=== PATIENT | male | born 1970 | race Two or more races ===

== ENCOUNTER 2024-12-15 16:43 | Inpatient (IN) | payer OTHER, SELFPAY ==
[2024-12-15] VITALS (19 sets, daily range): BP systolic 105–125; BP diastolic 61–81; PULSE 62–78; RESP 14–23; TEMP 36.5; O2SAT 94–99; BMI 35.7
--- NOTE | ~2024-12-15 | XR_ITS ---
EXAMINATION: XR chest 2V Exam Date/Time: 12/15/2024 17:14 CDT HISTORY: CP x 1 week Comparison: None. RESULT: Lines, tubes, and devices: None. Lungs and pleura: Clear. Cardiomediastinal silhouette: Stable. Other: No acute upper abdominal finding. Mild multilevel anterior wedge deformities in the lower tho racic spine, likely T10-T12. IMPRESSION: No acute cardiopulmonary process. Mild anterior wedge deformities in the lower thoracic spine, presumably physiologic or old, unless ac companied by acute back pain. Reviewed, dictated and finalized at location K. IMPRESSION: No acute cardiopulmonary process. Mild anterior wedge deformities in the lower thoracic spine, presumably physiol ogic or old, unless accompanied by acute back pain.
--- NOTE | ~2024-12-15 | CT_ITS ---
EXAMINATION: CT brain wo con DATE: 12/15/2024 17:26 INDICATION: R arm numbness . TECHNIQUE: Computed tomography (CT) of the head was performed without intravenous contrast. The mA wa s adjusted according to patient size. Iterative reconstruction technique was employed. The dose-lengt h product was 605.33 mGy-cm. COMPARISON: None. FINDINGS: No acute intracranial hemorrhage or extra-axial fluid collection. No hydrocephalus, mass, or herniation. No acute ischemic infarct. Unremarkable dural venous sinus attenuation. No acute osseous abnormality. Bilateral maxillary and ethmoid mucosal thickening, the remaining aerated spaces are clear. IMPRESSION: No acute intracranial process. Reviewed, dictated and finalized at location K.
--- NOTE | ~2024-12-15 | CT_ITS ---
EXAMINATION: CTA chest abdomen pelvis DATE: 12/15/2024 19:51 INDICATION: right arm neuro deficits and chest pain . TECHNIQUE: Computed tomography (CT) of the chest, abdomen, and pelvis was performed with 100 mL Omnip aque-350 intravenous contrast. Automated exposure control and iterative reconstruction technique were employed. The dose-length product was 1575.36 mGy-cm. COMPARISON: None FINDINGS: CHEST: Thoracic aorta: No significant dilation. No dissection. Minimal atherosclerotic calcification. Bovine arch. Left vertebral artery origin directly off the arch. Lung parenchyma and airways: Scattered sub-6 mm pulmonary nodules. Patent airways. Bronchial wall thi ckening. Thoracic inlet, axillae and chest wall: No thyroid or soft tissue mass. No axillary lymphadenopathy. Mediastinum: No mass or lymphadenopathy. Heart and pericardium: Normal heart size. No pericardial effusion. Coronary artery calcifications: . Pleura: No effusion or mass. Thoracic bones: No acute osseous finding in the chest. ABDOMEN/PELVIS: Liver: Enlarged. Diffuse fatty infiltration. Biliary/Gallbladder: Gallbladder is normal. No bile duct dilation. Pancreas: No mass or duct dilation. Spleen: Normal. Adrenals:No mass. Kidneys: No suspicious mass, obstructing stone, or hydronephrosis. Right midpole scar versus surgical defect. Simple left upper pole cyst. Bilateral subcentimeter hypodensities, too small to characteriz e but most likely represent cysts. GI tract: No small or large bowel dilation. Appendix not confidently visualized. Diverticulosis witho ut diverticulitis. Mesentery/Peritoneum: No ascites, mass, or free air. Retroperitoneum: No mass Pelvis: Pelvic organs are within normal limits Soft Tissues: Moderate left and mild right uncomplicated fat-containing inguinal hernias. Abdominopelvic bones: No acute osseous finding in the abdomen/pelvis. IMPRESSION: No acute process detected in the chest. Multiple sub-6 mm pulmonary nodules, which require no additional evaluation unless the patient is at high risk in which case consider an optional low-dose noncontrast CT of the chest in one year Hepatomegaly with steatosis. Reviewed, dictated and finalized at location K. IMPRESSION: No acute process detected in the chest. Multiple sub-6 mm pulmonary nodules, which require no additional evaluation unl ess the patient is at high risk in which case consider an optional low-dose non contrast CT of the chest in one year Hepatomegaly with steatosis.
--- NOTE | ~2024-12-15 | MR_ITS ---
MR cervical spine wo/w con Ordering provider: Kavon Galaviz MD History: . Right shoulder weakness . Comparison: None. Technique: MRI cervical spine with and without contrast enhancement. 20 mL ProHance was given IV. FINDINGS: CERVICAL SPINAL CORD/CRANIAL CERVICAL JUNCTION: Normal in signal and caliber. No abnormal enhancement . CERVICAL VERTEBRAL BODIES: Normal height and alignment. Degenerative changes of the spine. T1 and T2 hyperintense signal is seen in the posterior aspect of the vertebrae which may indicate sclerotic bimal nges. No abnormal marrow enhancement. DISK SPACES: Well maintained. Narrowing of the disc C3-C4, C4-C5 and C6-C7 C2-C3: No stenosis. C3-C4: Mild spinal canal stenosis secondary to broad based disc bulge. Bilateral narrowing of the fo ramina with root compression. C4-C5: Mild spinal canal stenosis secondary to broad based disc bulge. Bilateral narrowing of the fo ramina with root compression. C5-C6: No stenosis. Slight narrowing of the left intervertebral foramen. C6-C7: Mild spinal canal stenosis secondary to broad based disc bulge. Bilateral narrowing of the fo ramina with root compression more on the right side. C7-T1: No stenosis. VISUALIZED PARASPINOUS SOFT TISSUES: Normal. No abnormal enhancement. IMPRESSION: 1. No evidence of acute osseous abnormality. 2. Hyperintense signal seen in the posterior aspect of the vertebrae on T1 and T2 weighted images wh ich may indicate sclerotic changes. 3. Multilevel degenerative disc disease with variable degrees of spinal canal stenosis, intervertebr al foraminal narrowing and root compression. 4. Nonenhancing lesion seen. Reviewed, dictated and finalized at location A. IMPRESSION: 1. No evidence of acute osseous abnormality. 2. Hyperintense signal seen in the posterior aspect of the vertebrae on T1 and T2 weighted images which may indicate sclerotic changes. 3. Multilevel degenerative disc disease with variable degrees of spinal canal stenosis, intervertebral foraminal narrowing and root compression. 4. Nonenhancing lesion seen.
--- NOTE | ~2024-12-15 | MR_ITS ---
EXAMINATION: MR brain/brain stem wo con DATE: 12/16/2024 12:44 INDICATION: Right upper extremity weakness TECHNIQUE: Magnetic resonance imaging (MRI) of the brain and brainstem was performed without intraven ous contrast. Sequences included sagittal and axial T1-weighted SE, axial diffusion-weighted FS SE, a xial T2*-weighted GRE, axial T2-weighted FLAIR, and axial T2-weighted FSE. Apparent diffusion coeffic ient (ADC) maps were created. COMPARISON: Head CT dated 12/15/2024 FINDINGS: There are no areas of restricted diffusion to suggest acute infarction. No intracranial hemorrhage or abnormal intracranial mass lesion. There are a few small foci of nonspecific increased T2-weighted s ignal intensity in the cerebral white matter, predominantly involving the deep and periventricular wh ite matter which is within normal limits for age.. There are no intraparenchymal signal abnormalities seen on the other pulse sequences. The ventricles are symmetric and normal in size. There are no abn ormal extra-axial fluid collections. Flow voids are seen in the cerebral arteries on the T2-weighted sequences consistent with their expected patency. Mild mucosal thickening the paranasal sinuses. Visu alized orbits and soft tissues are unremarkable. IMPRESSION: 1. Normal for age brain. No acute intracranial process. Reviewed, dictated and finalized at location A.
--- NOTE | 2024-12-15 16:52 | ECG_ITS ---
Test Date: 2024-12-15 17:04:47 Measurements Intervals [place] Rate: 76 P: 56 [place]: 156 QRS: 10 QRSD: 98 T: 31 QT: 386 QTc: 435 Interpretive Statements SINUS RHYTHM INCOMPLETE RIGHT BUNDLE BRANCH BLOCK LOW QRS VOLTAGE IN PRECORDIAL LEADS BORDERLINE ECG No previous ECG available for comparison Electronically Signed On 12-15-2024 19:31:21 CDT by Ronan Dye D.O.
--- NOTE | 2024-12-15 17:09 | ED_ITS ---
HPI - Chest Pain General Chief Complaint: Chest Pain <Julienne Eaton APRN - Last Filed: 12/15/24 19:34> Stated Complaint: Chest pain x 1 week <Julienne Eaton APRN - Last Filed: 12/15/24 19:34> Time Seen by Provider: 12/15/24 17:00 <Julienne Eaton APRN - Last Filed: 12/15/24 19:34> Focused HPI: Patient is a 54-year-old male who presents to the ER with complaints of chest pain, shortness of breath and right arm numbness that started approximately 1 week ago. He reports he has a history of COPD, asthma, and kidney cancer. Patient reports the worst of his pain is in his chest but it has been worsening over the past week. He also reports that he has decreased feeling and strength in his right arm. Patient denies back pain, headache, and recent fevers. GENERAL: Well-appearing, well-nourished, and in no acute distress. HEAD: Normocephalic, atraumatic. CHEST: Wheezing and rales to auscultation. ?No respiratory distress. HEART: Regular rate and rhythm.? NEURO: ?Alert and oriented x3. Pt able to hold his R arm up at a 90 degree angle, but denies any feeling/sensation from his shoulder down to his fingers, unable to make a fist on R hand. Patient screened in triage and initial orders placed.? ?Additional care and disposition to be based upon?diagnostic testing and treatment. <Julienne Eaton APRN - Last Filed: 12/15/24 19:34> History of Present Illness HPI narrative: Agree with the HPI above. Patient states he woke up about 1 week prior with sudden-onset right-sided chest pain and numbness to his right arm going from the shoulder down to his fingertips as well as difficulty using his right arm. No history of strokes. History of right partial nephrectomy for kidney cancer now in remission. Denies any other neurological deficits. Was otherwise in his normal state of health. Denies any trauma or injuries. <Marty Ribeiro MD - Last Filed: 12/15/24 21:53> Related Data Allergies/Adverse Reactions: Allergies Allergy/AdvReac Type Severity Reaction Status Date / Time Penicillins Allergy Severe Difficulty Verified 12/15/24 19:20 Swallowing ibuprofen Allergy Intermediate Hives Verified 12/15/24 19:20 acetaminophen (From Tylenol) Allergy Mild Hives Verified 12/15/24 19:20 <Julienne Eaton APRN - Last Filed: 12/15/24 19:34> Review of Systems 2 Review of Systems: As reviewed above in HPI <Marty Ribeiro MD - Last Filed: 12/15/24 21:53> [facility] Social History Social History: Social History Smoking packs per day: 1 Smoking cigarettes per day: 20.0 Smoking status: Current every day smoker Alcohol intake: current Drinks per week: 1 Substance use: current Substance use type: marijuana Do You Feel Safe in your Home?: No Lack of Transportation: No Lack of Food: Never True Current Housing: I Have Housing Concerned About Future Housing: No Difficulty Paying Gas/Electric Bills: No Difficulty Paying for Meds: No Currently Unemployed: No Education: High School Diploma/GED Difficulty w/ Childcare or Family Care: No Spiritual care concerns: No <Julienne Eaton APRN - Last Filed: 12/15/24 19:34> Exam 2 Narrative: GENERAL: [Well-appearing, well-nourished, and in no acute distress.] HEAD: [Normocephalic, atraumatic.] EYES: [PERRLA and EOMI.] ENT: Nares clear, no rhinorrhea or epistaxis. Mucous membranes moist. NECK: Supple. CHEST: [Clear to auscultation. No respiratory distress.] HEART: [Regular rate and rhythm]. No murmur heard. [Normal peripheral pulses.] ABDOMEN: [Soft, nondistended], [nontender], [No rigidity or guarding] EXTREMITIES: Normal range of motion. [No edema.] SKIN: Warm, dry, no rash. NEURO: Right upper extremity with 2/5 surface plate inspector strength, 3/5 strength against gravity in the forearm and shoulder. Anesthesia to pain and light touch in the right upper extremity stopping at the proximal shoulder. No ataxia in the arms or legs. No lower extremity deficits. No left-sided deficits. No facial asymmetry. No anesthesia or paresthesia of the face. PSYCH: [Normal mood and affect.] <Marty Ribeiro MD - Last Filed: 12/15/24 21:53> Course Vital Signs Vital signs: Vital Signs Temperature 36.5 C 12/15/24 16:58 Pulse Rate 75 12/15/24 16:58 Respiratory Rate 16 12/15/24 16:58 Blood Pressure 113/72 12/15/24 16:58 Pulse Oximetry 96 12/15/24 16:58 Oxygen Delivery Room Air 12/15/24 16:58 Temperature 36.5 C 12/15/24 16:58 Pulse Rate 62 12/15/24 21:16 Respiratory Rate 17 12/15/24 21:16 Blood Pressure 123/61 12/15/24 21:20 Pulse Oximetry 96 12/15/24 21:16 Oxygen Delivery Room Air 12/15/24 19:19 <Julienne Eaton APRN - Last Filed: 12/15/24 19:34> Vital Signs Temperature 36.5 C 12/15/24 16:58 Pulse Rate 75 12/15/24 16:58 Respiratory Rate 16 12/15/24 16:58 Blood Pressure 113/72 12/15/24 16:58 Pulse Oximetry 96 12/15/24 16:58 Oxygen Delivery Room Air 12/15/24 16:58 Temperature 36.5 C 12/15/24 16:58 Pulse Rate 62 12/15/24 21:16 Respiratory Rate 17 12/15/24 21:16 Blood Pressure 123/61 12/15/24 21:20 Pulse Oximetry 96 12/15/24 21:16 Oxygen Delivery Room Air 12/15/24 19:19 <Marty Ribeiro MD - Last Filed: 12/15/24 21:53> MDM - Chest Pain MDM Narrative Medical decision making narrative: 54-year-old male with a past medical history including asthma, COPD, kidney cancer with partial nephrectomy. Patient presents today with 1 week of right-sided chest pain associated with neurological deficits such as numbness and inability uses right upper extremity. No history of strokes. No history of cardiac disease or aortic disease to his knowledge. Symptoms persisted for 1 week without any worsening or improvement. Has not sought medical attention prior to today. Denies any headache. His neurological examination does show some concerning findings including decreased surface plate inspector strength 2 in 5 in the right hand, 3 in 5 strength against gravity in the proximal right upper extremity. No deficits to the left side her bilateral lower extremities. No facial asymmetry. Combined with his right-sided chest pain and hard neurological findings suspicion is raised for potential aortic process such as dissection or aneurysm. Intracranial process such as acute or subacute stroke also higher in the differential. Low suspicion acute coronary syndrome. Broad workup was ordered including CBC, CMP, troponin, EKG, chest x-ray, CT angiography of the chest abdomen pelvis and a CT noncontrast of the head. Symptoms ongoing for approximately 1 week. Workup shows no leukocytosis or anemia. Troponin negative x2. CT angiography shows no dissection. Electrolytes largely unremarkable. Normal glucose, normal renal and hepatic function panel. CT of the head shows no acute findings. Chest x-ray unremarkable. Given patient's neurological findings and unremarkable cardiac and vascular workup here I believe he would benefit from admission and brain MRI. Discussed the case with the hospitalist Dr. Hawley who agreed. MRI was ordered. Patient admitted to a telemetry monitored bed at this time. Neurology consult placed. <Marty Ribeiro MD - Last Filed: 12/15/24 21:53> Medical Records Data Attestation: I reviewed the patient's medical records. <Marty Ribeiro MD - Last Filed: 12/15/24 21:53> Lab Data Attestation: I reviewed the patient's lab results. <Marty Ribeiro MD - Last Filed: 12/15/24 21:53> Result diagrams: 12/15/24 17:08 12/15/24 17:08 <Julienne Eaton APRN - Last Filed: 12/15/24 19:34> Labs: Lab Results 12/15/24 12/15/24 Range/Units 17:08 19:58 WBC 6.1 (4.5-10.0) K/mm3 RBC 5.53 (4.6-6.20) M/mm3 Hgb 17.1 (14.0-18.0) g/dL Hct 50.3 (42.0-52.0) % MCV 91.0 (80-100) fl MCH 30.9 (26-34) pg MCHC 34.0 (32-36) g/dl RDW 11.9 (11.5-14.5) % Plt Count 216 (150-375) k/mm3 MPV 10.6 H (7.4-10.4) fl Immature Gran % (Auto) 0.3 (0-0.5) % Neut % (Auto) 59.1 (45.5-73.1) % Lymph % (Auto) 29.3 (18.3-44.2) % [place] % (Auto) 5.5 (2.6-8.5) % Eos % (Auto) 4.8 H (0-4.4) % Baso % (Auto) 1.0 (0.2-1.2) % Lymph # (Auto) 1.77 (0.9-3.2) K/mm3 [place] # (Auto) 0.3 (0.1-0.6) K/mm3 Eos # (Auto) 0.3 (0-0.3) K/mm3 Baso # (Auto) 0.1 (0.0-0.1) K/mm3 Abs Immat Gran (auto) 0.02 (0.00-0.031) K/mm3 Absolute Neuts (auto) 3.6 (1.3-6.7) K/mm3 Absolute Nucleated RBC 0.000 (0.0-0.012) K/mm3 Nucleated RBC % 0.0 (0.0-0.2) % PT 14.4 (11.1-14.7) Seconds INR 1.1 APTT 32.5 (22.3-36.8) Seconds D-Dimer 0.49 H (<0.48) ug/mL Sodium 142 (137-145) mmol/L Potassium 4.1 (3.4-5.0) mmol/L Chloride 108 H (98-107) mmol/L Carbon Dioxide 20 L (22-30) mmol/L Anion Gap 14 H (4-12) mmol/L BUN 12 (9-20) mg/dL Creatinine 0.84 (0.7-1.3) mg/dL Estim Creat Clear Calc 118 ml/min Estimated GFR > 60 (59 - ) Glucose 96 (65-110) mg/dL Calcium 8.8 (8.4-10.2) mg/dL Total Bilirubin 0.5 (0.2-1.3) mg/dL AST 46 (17-59) U/L ALT 59 H (6-50) U/L Alkaline Phosphatase 92 (38-126) U/L Troponin I < 0.012 < 0.012 (0.000-0.034) ng/mL NT-Pro-B Natriuret Pep 51 (19.9-100) pg/mL Total Protein 8.0 (6.3-8.2) g/dL Albumin 4.4 (3.5-5.1) g/dL Lipase 115 (23-300) U/L <Julienne Eaton, REGISTERED NURSE [facility]IOR[facility] HEALTH - Last Filed: 12/15/24 19:34> Lab Results 12/15/24 12/15/24 Range/Units 17:08 19:58 WBC 6.1 (4.5-10.0) K/mm3 RBC 5.53 (4.6-6.20) M/mm3 Hgb 17.1 (14.0-18.0) g/dL Hct 50.3 (42.0-52.0) % MCV 91.0 (80-100) fl MCH 30.9 (26-34) pg MCHC 34.0 (32-36) g/dl RDW 11.9 (11.5-14.5) % Plt Count 216 (150-375) k/mm3 MPV 10.6 H (7.4-10.4) fl Immature Gran % (Auto) 0.3 (0-0.5) % Neut % (Auto) 59.1 (45.5-73.1) % Lymph % (Auto) 29.3 (18.3-44.2) % [place] % (Auto) 5.5 (2.6-8.5) % Eos % (Auto) 4.8 H (0-4.4) % Baso % (Auto) 1.0 (0.2-1.2) % Lymph # (Auto) 1.77 (0.9-3.2) K/mm3 [place] # (Auto) 0.3 (0.1-0.6) K/mm3 Eos # (Auto) 0.3 (0-0.3) K/mm3 Baso # (Auto) 0.1 (0.0-0.1) K/mm3 Abs Immat Gran (auto) 0.02 (0.00-0.031) K/mm3 Absolute Neuts (auto) 3.6 (1.3-6.7) K/mm3 Absolute Nucleated RBC 0.000 (0.0-0.012) K/mm3 Nucleated RBC % 0.0 (0.0-0.2) % PT 14.4 (11.1-14.7) Seconds INR 1.1 APTT 32.5 (22.3-36.8) Seconds D-Dimer 0.49 H (<0.48) ug/mL Sodium 142 (137-145) mmol/L Potassium 4.1 (3.4-5.0) mmol/L Chloride 108 H (98-107) mmol/L Carbon Dioxide 20 L (22-30) mmol/L Anion Gap 14 H (4-12) mmol/L BUN 12 (9-20) mg/dL Creatinine 0.84 (0.7-1.3) mg/dL Estim Creat Clear Calc 118 ml/min Estimated GFR > 60 (59 - ) Glucose 96 (65-110) mg/dL Calcium 8.8 (8.4-10.2) mg/dL Total Bilirubin 0.5 (0.2-1.3) mg/dL AST 46 (17-59) U/L ALT 59 H (6-50) U/L Alkaline Phosphatase 92 (38-126) U/L Troponin I < 0.012 < 0.012 (0.000-0.034) ng/mL NT-Pro-B Natriuret Pep 51 (19.9-100) pg/mL Total Protein 8.0 (6.3-8.2) g/dL Albumin 4.4 (3.5-5.1) g/dL Lipase 115 (23-300) U/L <Marty Ribeiro MD - Last Filed: 12/15/24 21:53> Imaging Data Attestation: I personally reviewed and interpreted this imaging study as follows: < Marty Ribeiro MD - Last Filed: 12/15/24 21:53> My impression: Impressions Chest X-Ray 12/15/24 17:22 IMPRESSION: No acute cardiopulmonary process. Mild anterior wedge deformities in the lower thoracic spine, presumably physiologic or old, unless accompanied by acute back pain. Head CT 12/15/24 17:29 IMPRESSION: No acute intracranial process. Chest/Abdomen/Pelvis CTA 12/15/24 20:01 IMPRESSION: No acute process detected in the chest. Multiple sub-6 mm pulmonary nodules, which require no additional evaluation unless the patient is at high risk in which case consider an optional low-dose noncontrast CT of the chest in one year Hepatomegaly with steatosis. <Marty Ribeiro MD - Last Filed: 12/15/24 21:53> Critical Care Time Critical Care Time Critical Care Time: Yes <Marty Ribeiro MD - Last Filed: 12/15/24 21:53> Total Critical Care Time: 60 <Marty Ribeiro MD - Last Filed: 12/15/24 21:53> Discharge Plan Discharge Clinical Impression: Right arm weakness, Right arm numbness, Right-sided chest pain <Julienne Eaton APRN - Last Filed: 12/15/24 19:34> Patient Disposition: Still a Patient <Julienne Eaton APRN - Last Filed: 12/15/24 19:34> Condition: Stable <Julienne Eaton APRN - Last Filed: 12/15/24 19:34>
--- NOTE | 2024-12-15 17:13 | PC.NURSE ---
called lab to add on DDimer and BNP
[2024-12-15 17:15] LABS: Basophils Absolute Auto 0.1 K/mm3 (0.0-0.1); Eosinophils Absolute Auto 0.3 K/mm3 (0-0.3); Eosinophils Percent Auto 4.8 % (0-4.4); Hematocrit 50.3 % (42.0-52.0); Hemoglobin 17.1 g/dL (14.0-18.0); Immature Granulocyte Absolute 0.02 K/mm3 (0.00-0.031); Immature Granulocyte Percent A 0.3 % (0-0.5); Lymphocytes Absolute Auto 1.77 K/mm3 (0.9-3.2); Lymphocytes Percent Auto 29.3 % (18.3-44.2); Mean Corpuscular Hemoglobin 30.9 pg (26-34); Mean Platelet Volume 10.6 fl (7.4-10.4); Monocytes Absolute Auto 0.3 K/mm3 (0.1-0.6); Monocytes Percent Auto 5.5 % (2.6-8.5); Neutrophils Absolute Auto 3.6 K/mm3 (1.3-6.7); Neutrophils Percent Auto 59.1 % (45.5-73.1); Platelet Count Result 216 k/mm3 (150-375); Red Blood Count 5.53 M/mm3 (4.6-6.20); Red Cell Distribution Width 11.9 % (11.5-14.5); White Blood Count 6.1 K/mm3 (4.5-10.0)
[2024-12-15 17:25] LABS: Alanine Aminotransferase 59 U/L (6-50); Albumin Level 4.4 g/dL (3.5-5.1); Alkaline Phosphatase 92 U/L (38-126); Anion Gap 14 mmol/L (4-12); Aspartate Amino Transferase 46 U/L (17-59); Bilirubin,Total 0.5 mg/dL (0.2-1.3); Blood Urea Nitrogen 12 mg/dL (9-20); Calcium 8.8 mg/dL (8.4-10.2); Carbon Dioxide 20 mmol/L (22-30); Chloride 108 mmol/L (98-107); Estimated CRCL calculation 118 ml/min; Estimated Glomerular Filt Rate > 60; Glucose 96 mg/dL (65-110); Lipase 115 U/L (23-300); Potassium 4.1 mmol/L (3.4-5.0); Sodium 142 mmol/L (137-145)
[2024-12-15 17:28] LABS: INR 1.1; Prothrombin Time 14.4 Seconds (11.1-14.7)
[2024-12-15 17:29] LABS: Partial Thromboplastin Time 32.5 Seconds (22.3-36.8)
[2024-12-15 17:33] LABS: D Dimer 0.49 ug/mL (<0.48)
[2024-12-15 17:41] LABS: NT Pro B Type Natriuretic Pept 51 pg/mL (19.9-100); Troponin I < 0.012 ng/mL (0.000-0.034)
[2024-12-15] MEDS: HYDROmorphone HCL INJ (*CRX) 2 MG/ML VIAL 0.5 MG IV PUSH ×2 (19:34→23:33)
--- OUTSIDE RECORDS SUMMARY | 2024-12-15 19:34 | XMS_ITS | Patient Health Record ---
Author Organization [facility] Address [address] [place] [address] Care Team Providers Care Maintenance Shop Manager Name Role Phone Annelise Barcenas Primary Care Provider [phone] Reason For Referral No Information Plan Of Treatment No Information Insurance Providers Payer Name Payer Address Payer Phone Subscriber Number Group Number Insured Name Patient Relationship to Insured Coverage Start Date Coverage End Date [facility] Attn Claims Department [address] [facility] [place] [address] [id number] Nilda Foreman Self - patient is the insured 4
--- OUTSIDE RECORDS SUMMARY | 2024-12-15 19:35 | XMS_ITS ---
Author Organization [facility] Address [address] [place] [address] Care Team Providers Care Medical Imaging Director Name Role Phone Annelise Barcenas Primary Care Provider [phone] REASON FOR VISIT New Patient Psych Eval Encounters Encounter Location Date Provider Diagnosis [address] [place] [address] 06/03/2024 Annelise Barcenas Plan Of Treatment No Information Progress Notes * AHSANNildaDOB:[birth year] (54 yo M)Acc No.[id number]:06/03/2024 UNLOCKED PROGRESS NOTE Patient: Nilda SMITH Provider: Josias Barcenas DNP, APRN, PMHNP-BC :1970 A ge:53 Y S ex:Male Date:06/03/2024 [facility] [id number] Subjective: * Chief Complaints: * 1 . New Patient Psych Eval. * Medical History: Objective: * Vitals: Assessment: Plan: * Treatment: * * Electronic signature of Mitzi Fair [phone] on 12/15/2024 at 07:34 PM CDT Sign off status: Pending * Provider: Josias Barcenas DNP, APRN, PMHNP-BC Date: 1 Generated for Printing/Faxing/eTransmitting on: 0 12/15/2024 07:34 PM CDT
--- NOTE | 2024-12-15 19:55 | ECG_ITS ---
Test Date: 2024-12-15 20:03:25 Measurements Intervals [place] Rate: 67 P: 60 [place]: 162 QRS: 26 QRSD: 102 T: 32 QT: 419 QTc: 445 Interpretive Statements SINUS RHYTHM ST ELEVATION IN DIFFUSE LEADS- PROBABLY EARLY REPOLARIZATION BORDERLINE ECG Compared to ECG 12/15/2024 17:04:47 NO SIGNIFICANT CHANGE Electronically Signed On 12-16-2024 06:19:00 CDT by Ronan Dye D.O.
[2024-12-15 20:26] LABS: Troponin I < 0.012 ng/mL (0.000-0.034)
--- NOTE | 2024-12-15 21:35 | ADMGEN ---
This patient, Nilda Foreman, was admitted to 2 Medical Room 255-01. Patient/family oriented to hospital policies and general routines including ID bracelet, bed and alarms, visiting hours, pain management, procedures, bathroom and other care routines, personal items, smoking policy, room service/diet, and visiting hours. Information on how to activate the Rapid Response Team has been discussed. Patient/Family are encouraged to report perceived risks to care and to ask questions if they do not understand what they are told or what they should do.
[2024-12-15] MEDS: CLOPIDOGREL BISULFATE 300 MG TABLET PO (23:33)
[2024-12-15] MEDS: ASPIRIN 325 MG TABLET (23:33)
[2024-12-15] MEDS: ATORVASTATIN 40 MG TABLET PO (23:33)
[2024-12-15] MEDS: ASPIRIN 325 MG TABLET PO (23:33)
[2024-12-16] VITALS (10 sets, daily range): BP systolic 131–149; BP diastolic 70–86; PULSE 54–76; RESP 14–16; TEMP 36.5–37; O2SAT 96–98
[2024-12-16] MEDS: HYDROmorphone HCL INJ (*CRX) 2 MG/ML VIAL 0.5 MG IV PUSH (04:35)
[2024-12-16 04:53] LABS: Basophils Absolute Auto 0.1 K/mm3 (0.0-0.1); Eosinophils Absolute Auto 0.3 K/mm3 (0-0.3); Eosinophils Percent Auto 5.3 % (0-4.4); Hematocrit 47.2 % (42.0-52.0); Hemoglobin 15.6 g/dL (14.0-18.0); Immature Granulocyte Absolute 0.02 K/mm3 (0.00-0.031); Immature Granulocyte Percent A 0.4 % (0-0.5); Lymphocytes Absolute Auto 1.73 K/mm3 (0.9-3.2); Mean Corpuscular HGB Conc 33.1 g/dl (32-36); Mean Corpuscular Volume 93.8 fl (80-100); Mean Platelet Volume 11.3 fl (7.4-10.4); Monocytes Absolute Auto 0.5 K/mm3 (0.1-0.6); Monocytes Percent Auto 10.1 % (2.6-8.5); Neutrophils Absolute Auto 2.6 K/mm3 (1.3-6.7); Neutrophils Percent Auto 50.2 % (45.5-73.1); Platelet Count Result 185 k/mm3 (150-375); Red Blood Count 5.03 M/mm3 (4.6-6.20); Red Cell Distribution Width 12.2 % (11.5-14.5); White Blood Count 5.2 K/mm3 (4.5-10.0)
[2024-12-16 04:59] LABS: Cholesterol 236 mg/dL (0-200); HDL Direct 35 mg/dL; Triglycerides 228 mg/dL (<150)
[2024-12-16 05:05] LABS: Alanine Aminotransferase 58 U/L (6-50); Albumin Level 3.9 g/dL (3.5-5.1); Alkaline Phosphatase 82 U/L (38-126); Anion Gap 9 mmol/L (4-12); Aspartate Amino Transferase 44 U/L (17-59); Bilirubin,Total 0.5 mg/dL (0.2-1.3); Blood Urea Nitrogen 12 mg/dL (9-20); Calcium 8.5 mg/dL (8.4-10.2); Carbon Dioxide 23 mmol/L (22-30); Chloride 104 mmol/L (98-107); Estimated CRCL calculation 126 ml/min; Estimated Glomerular Filt Rate > 60; Glucose 106 mg/dL (65-110); Potassium 3.9 mmol/L (3.4-5.0); Sodium 136 mmol/L (137-145)
[2024-12-16 05:09] LABS: LDL Cholesterol Direct 156 mg/dL
[2024-12-16 05:16] LABS: Hemoglobin A1C 5.3 % (<5.7)
--- NOTE | 2024-12-16 07:38 | P.PNIM_ITS ---
Progress Note: A&P Assessment and Plan (1) Right arm numbness: Code(s): R20.0 - Anesthesia of skin Status: Acute Assessment and Plan: And weakness Neurology consulted Head CT shows no acute process MRI pending Patient started aspirin, Plavix, Lipitor And Lovenox (2) Right-sided chest pain: Code(s): R07.9 - Chest pain, unspecified Status: Acute Assessment and Plan: Reproducible upon palpation Troponins negative EKG sinus rhythm Lidocaine patch (3) Hyperlipidemia: Code(s): E78.5 - Hyperlipidemia, unspecified Status: Acute Assessment and Plan: Started on Lipitor daily (4) Fatty liver: Code(s): K76.0 - Fatty (change of) liver, not elsewhere classified Status: Acute Assessment and Plan: ALT 58 Patient counseled on cutting down or quitting drinking Monitor for withdrawals (5) Pulmonary nodule: Code(s): R91.1 - Solitary pulmonary nodule Status: Acute Assessment and Plan: Multiple sub-6 mm pulmonary nodules, which require no additional evaluation unless the patient is at high risk in which case consider an optional low-dose noncontrast CT of the chest in one year Follow-up with PCP Subjective Date/time seen: 12/16/24 07:38 Interval history: 54-year-old presents the hospital with chest pain, shortness of breath and right arm numbness for about a week. Under bedside exam patient states that numbness and limited mobility of his right arm resolved. Plan for MRI today. Chest pain is reproducible upon palpation. Review of Systems Review of Systems: 12 systems were reviewed and are negativ e except for as per HPI. Exam Narrative: General: well appearing, appears stated age. HEENT: normocephalic, atraumatic. Mucous membranes moist. EOMI, PERRLA, b ilateral sclera anicteric, no conjunctival injection. Neck supple without JVD, lymphadenopathy, or bruit. Respiratory: clear to ascultation bilaterally. No rales/rhonic/wheezes. Cardiovascular: Regular rate and rhythm, normal S1-S2 upon ascultation. No murmurs, rubs, or clicks. PMI is nondisplaced, capillary refill less than 3 second. Abdomen: Soft, round, no pulsatile masses, nondistended and nontender. No rebound, no guarding. No CVA tenderness, no hepatosplenomegaly. Bowel sounds present to all four quadrants. No high pitch or tinkling sounds, resonant to percussion. Extremities: No cyanosis, clubbing, or edema present. Pulses are palpable 2/2. Active ROM to all four extremities. Neuro: Alert and orientated x 4. PERRLA. Cranial nerves 2-12 intact without focal deficit. Skin: Warm, dry, and intact, without rash, erythema, or lesion. Psych: pleasant, cooperative, normal speech, normal affect, no hallucinations, no dysarthia Objective Data Vital Signs Vital Signs: Vital Signs - 24 hr 12/15/24 16:58 12/15/24 18:34 12/15/24 18:45 Temperature 97.7 F Pulse Rate 75 75 72 Respiratory Rate 16 21 H 16 Blood Pressure 113/72 Pulse Oximetry 96 94 94 Oxygen Delivery Room Air 12/15/24 18:46 12/15/24 18:54 12/15/24 18:54 Temperature Pulse Rate 78 71 Respiratory Rate 17 20 Blood Pressure 105/77 105/77 Pulse Oximetry 96 98 99 Oxygen Delivery Room Air 12/15/24 19:04 12/15/24 19:14 12/15/24 19:16 Temperature Pulse Rate 72 70 Respiratory Rate 23 H 16 Blood Pressure 125/81 Pulse Oximetry 96 97 97 Oxygen Delivery Room Air 12/15/24 19:19 12/15/24 19:22 12/15/24 19:55 Temperature Pulse Rate 70 69 Respiratory Rate 17 16 Blood Pressure Pulse Oximetry 96 96 98 Oxygen Delivery Room Air 12/15/24 20:05 12/15/24 20:17 12/15/24 20:30 Temperature Pulse Rate 68 74 66 Respiratory Rate 14 19 14 Blood Pressure Pulse Oximetry 97 96 97 Oxygen Delivery 12/15/24 20:49 12/15/24 21:01 12/15/24 21:16 Temperature Pulse Rate 65 64 62 Respiratory Rate 22 H 18 17 Blood Pressure Pulse Oximetry 97 96 96 Oxygen Delivery 12/15/24 21:20 12/15/24 22:00 12/15/24 22:00 Temperature Pulse Rate 69 69 Respiratory Rate 18 Blood Pressure 123/61 Pulse Oximetry 95 Oxygen Delivery 12/16/24 00:00 12/16/24 04:00 12/16/24 06:00 Temperature 98.6 F Pulse Rate 76 72 61 Respiratory Rate 16 Blood Pressure 131/86 Pulse Oximetry 96 Oxygen Delivery Intake/Output Intake/Output: Intake & Output 12/13/24 12/14/24 12/15/24 12/16/24 23:59 23:59 23:59 23:59 Intake Total 200 Balance 200 Meds/Results Medications: Active Medications Generic Name Dose Route Start Last Admin Trade Name Freq PRN Reason Stop Dose Admin Hydrocodone Bitart/Acetaminophen 1 tab 12/16/24 01:07 Hydrocodone/Acetaminophen (*Crx) 5-325 Mg Tablet PO Q4H PRN Pain Rated 4-6 Aspirin 81 mg 12/16/24 09:00 Aspirin 81 Mg Enteric Tablet PO QAM [facility] Clopidogrel Bisulfate 75 mg 12/16/24 09:00 Clopidogrel Bisulfate 75 Mg Tablet PO QAM [facility] Hydromorphone HCl 0.5 mg 12/16/24 01:08 12/16/24 04:35 Hydromorphone Hcl Inj (*Crx) 2 Mg/Ml Vial IV PUSH 0.5 mg Q2H PRN Administration Pain Rated 7-10 Lidocaine 1 patch 12/16/24 09:00 Lidocaine 5% Patch TRANSDERM DAILY [facility] Radiology Results: ITS Impressions Chest X-Ray 12/15/24 17:22 IMPRESSION: No acute cardiopulmonary process. Mild anterior wedge deformities in the lower thoracic spine, presumably physiologic or old, unless accompanied by acute back pain. Head CT 12/15/24 17:29 IMPRESSION: No acute intracranial process. Chest/Abdomen/Pelvis CTA 12/15/24 20:01 IMPRESSION: No acute process detected in the chest. Multiple sub-6 mm pulmonary nodules, which require no additional evaluation unless the patient is at high risk in which case consider an optional low-dose noncontrast CT of the chest in one year Hepatomegaly with steatosis. Labs Labs: Laboratory Results - last 24 hr 12/15/24 12/15/24 12/16/24 17:08 19:58 04:24 WBC 6.1 5.2 RBC 5.53 5.03 Hgb 17.1 15.6 Hct 50.3 47.2 MCV 91.0 93.8 MCH 30.9 31.0 MCHC 34.0 33.1 RDW 11.9 12.2 Plt Count 216 185 MPV 10.6 H 11.3 H Immature Gran % (Auto) 0.3 0.4 Neut % (Auto) 59.1 50.2 Lymph % (Auto) 29.3 33.0 [place] % (Auto) 5.5 10.1 H Eos % (Auto) 4.8 H 5.3 H Baso % (Auto) 1.0 1.0 Lymph # (Auto) 1.77 1.73 [place] # (Auto) 0.3 0.5 Eos # (Auto) 0.3 0.3 Baso # (Auto) 0.1 0.1 Abs Immat Gran (auto) 0.02 0.02 Absolute Neuts (auto) 3.6 2.6 Absolute Nucleated RBC 0.000 0.000 Nucleated RBC % 0.0 0.0 PT 14.4 INR 1.1 APTT 32.5 D-Dimer 0.49 H Sodium 142 136 L Potassium 4.1 3.9 Chloride 108 H 104 Carbon Dioxide 20 L 23 Anion Gap 14 H 9 BUN 12 12 Creatinine 0.84 0.79 Estim Creat Clear Calc 118 126 Estimated GFR > 60 > 60 Glucose 96 106 Hemoglobin A1c 5.3 Calcium 8.8 8.5 Total Bilirubin 0.5 0.5 AST 46 44 ALT 59 H 58 H Alkaline Phosphatase 92 82 Troponin I < 0.012 < 0.012 NT-Pro-B Natriuret Pep 51 Total Protein 8.0 7.0 Albumin 4.4 3.9 Triglycerides 228 H Cholesterol 236 H LDL Cholesterol Direct 156 HDL Direct 35 Lipase 115 Quality VTE Prophylaxis VTE prophylaxis: mechanical ordered and pharmacologic ordered Hospitalist MIPS Advance Care Plan I have confirmed that the patient's Advanced Care Plan is present, code status is documented, or surrogate decision maker is listed in patient medical record.: Yes Medication Reconciliation I have utilized all available resources to obtain, update and review the patients current medications (includes all prescriptions, OTC, herbals, cannabis, and nutritional supplements).: Yes
[2024-12-16] MEDS: HYDROcodone/acetaminophen (*CRX) 5-325 MG TABLET 1 TAB PO ×2 (08:43→20:50)
[2024-12-16] MEDS: LIDOCAINE 5% PATCH 1 PATCH TRANSDERM (08:44)
[2024-12-16] MEDS: ATORVASTATIN 40 MG TABLET PO (08:44)
[2024-12-16] MEDS: CLOPIDOGREL BISULFATE 75 MG TABLET PO (08:44)
[2024-12-16] MEDS: ASPIRIN 81 MG ENTERIC TABLET PO (08:44)
--- NOTE | 2024-12-16 12:50 | P.CONNEU_ITS ---
Assessment and Plan Assessment and plan (1) Right arm numbness: Code(s): R20.0 - Anesthesia of skin Status: Acute (2) Right arm weakness: Code(s): R29.898 - Other symptoms and signs involving the musculoskeletal system Status: Acute Plan 1. Difficulties in breathing for 1 week duration in addition the history of COPD and bronchial asthma and renal cancer 2. Decreased sensation and strength in the right upper extremity 3. Brain MRI normal considering the weakness in the right upper extremity, MRI of cervical spine was obtained rule out the possibility of any space-occupying lesion in his cervical spine or significant arthritic spurs but the study is not consistent with and at this stage patient can be discharged there is no need for any surgical intervention in the head or the neck. Consult date: 12/17/24 HPI: Nilda Foreman is a 54 year old male Has been admitted to the hospital through the emergency room for the complaints of chest pain with difficulties in breathing and numbness of the right upper extremity of 1 week duration in addition to the ongoing history of 1. COPD 2. Renal carcinoma and 3. Bronchial asthma on initial examination he was noted to be wheezing and havingr ales on auscultation, he is allergic to penicillin and ibuprofen in addition history of currently everyday smoking in addition to 1 drinks per week. On initial eval in the emergency room he was noted to have decreased strength on the right, with normal vital signs, initial CT scan of the head was negative, CTA of the chest was negative for any acute process but multiple sub 6mm pulmonary nodules were documented. Subsequently he has undergone MRI of the brain which is negative Review of Systems 2 Review of Systems: All systems reviewed & are unremarkable except as noted in HPI and below PMFSH Social History Social History Smoking packs per day: 1 Smoking cigarettes per day: 20.0 Smoking status: Current every day smoker Alcohol intake: current Drinks per week: 1 Substance use: current Substance use type: marijuana Do You Feel Safe in your Home?: No Lack of Transportation: No Lack of Food: Never True Current Housing: I Have Housing Concerned About Future Housing: No Difficulty Paying Gas/Electric Bills: No Difficulty Paying for Meds: No Currently Unemployed: No Education: High School Diploma/GED Difficulty w/ Childcare or Family Care: No Spiritual care concerns: No Meds Home Medications and Allergies Home Medications ?Medication ?Instructions ?Recorded ?Confirmed ?Type No Home Medications 12/15/24 12/15/24 History Allergies Allergy/AdvReac Type Severity Reaction Status Date / Time Penicillins Allergy Severe Difficulty Verified 12/15/24 19:20 Swallowing ibuprofen Allergy Intermediate Hives Verified 12/15/24 19:20 acetaminophen (From Tylenol) Allergy Mild Hives Verified 12/15/24 19:20 Vital Signs Vital Signs - 24 hr 12/15/24 16:58 12/15/24 18:34 12/15/24 18:45 Temperature 36.5 C Pulse Rate 75 75 72 Respiratory Rate 16 21 H 16 Blood Pressure 113/72 Pulse Oximetry 96 94 94 Oxygen Delivery Room Air 12/15/24 18:46 12/15/24 18:54 12/15/24 18:54 Temperature Pulse Rate 78 71 Respiratory Rate 17 20 Blood Pressure 105/77 105/77 Pulse Oximetry 96 98 99 Oxygen Delivery Room Air 12/15/24 19:04 12/15/24 19:14 12/15/24 19:16 Temperature Pulse Rate 72 70 Respiratory Rate 23 H 16 Blood Pressure 125/81 Pulse Oximetry 96 97 97 Oxygen Delivery Room Air 12/15/24 19:19 12/15/24 19:22 12/15/24 19:55 Temperature Pulse Rate 70 69 Respiratory Rate 17 16 Blood Pressure Pulse Oximetry 96 96 98 Oxygen Delivery Room Air 12/15/24 20:05 12/15/24 20:17 12/15/24 20:30 Temperature Pulse Rate 68 74 66 Respiratory Rate 14 19 14 Blood Pressure Pulse Oximetry 97 96 97 Oxygen Delivery 12/15/24 20:49 12/15/24 21:01 12/15/24 21:16 Temperature Pulse Rate 65 64 62 Respiratory Rate 22 H 18 17 Blood Pressure Pulse Oximetry 97 96 96 Oxygen Delivery 12/15/24 21:20 12/15/24 22:00 12/15/24 22:00 Temperature Pulse Rate 69 69 Respiratory Rate 18 Blood Pressure 123/61 Pulse Oximetry 95 Oxygen Delivery 12/16/24 00:00 12/16/24 04:00 12/16/24 06:00 Temperature 37.0 C Pulse Rate 76 72 61 Respiratory Rate 16 Blood Pressure 131/86 Pulse Oximetry 96 Oxygen Delivery 12/16/24 08:33 12/16/24 10:44 Temperature Pulse Rate Respiratory Rate Blood Pressure Pulse Oximetry 96 Oxygen Delivery Room Air Room Air Exam 2 Narrative: Awake alert cooperative in no obvious acute distress, head normocephalic with no bruit year nose throat examination normal, neck supple with no cervical bruit no thyromegaly no lymphadenopathy, heart regular with no murmur, lungs clear to auscultation with no rhonchi or crepitation, abdomen soft nontender normal bowel sounds with no organomegaly, extremities normal neurological he is awake alert oriented x4 speech not dysphasic not dysarthric the pupils round regular feels the vision full extraocular movements full face symmetrical tongue midline motor examination revealed him to have no drift of 1 side or other side no increased tone reflexes symmetrical plantars are down gaze no evidence of gross sensory or cerebellar deficit. Results Labs 12/17/24 07:41 12/17/24 07:41 Labs: Short CBC 12/15/24 12/16/24 Range/Units 17:08 04:24 WBC 6.1 5.2 (4.5-10.0) K/mm3 Hgb 17.1 15.6 (14.0-18.0) g/dL Hct 50.3 47.2 (42.0-52.0) % Plt Count 216 185 (150-375) k/mm3 BMP 12/15/24 12/16/24 17:08 04:24 Sodium 142 136 L Potassium 4.1 3.9 Chloride 108 H 104 Carbon Dioxide 20 L 23 BUN 12 12 Creatinine 0.84 0.79 Glucose 96 106 Calcium 8.8 8.5 Cardiac Enzymes 12/15/24 12/15/24 Range/Units 17:08 19:58 Troponin I < 0.012 < 0.012 (0.000-0.034) ng/mL Liver Function 12/15/24 12/16/24 Range/Units 17:08 04:24 Total Bilirubin 0.5 0.5 (0.2-1.3) mg/dL AST 46 44 (17-59) U/L ALT 59 H 58 H (6-50) U/L Alkaline Phosphatase 92 82 (38-126) U/L Albumin 4.4 3.9 (3.5-5.1) g/dL
[2024-12-16] MEDS: ENOXAPARIN 40 MG/0.4 ML SYRINGE SUB-Q (12:56)
[2024-12-17] VITALS: PULSE 52
[2024-12-17 04:00] VITALS: PULSE 52
[2024-12-17 05:46] VITALS: BP 113/75; PULSE 60; RESP 16; TEMP 36.4; O2SAT 96
[2024-12-17] MEDS: HYDROcodone/acetaminophen (*CRX) 5-325 MG TABLET 1 TAB PO ×2 (05:49→13:25)
[2024-12-17 07:49] LABS: Basophils Absolute Auto 0.1 K/mm3 (0.0-0.1); Basophils Percent Auto 1.4 % (0.2-1.2); Eosinophils Absolute Auto 0.3 K/mm3 (0-0.3); Eosinophils Percent Auto 5.9 % (0-4.4); Hematocrit 48.3 % (42.0-52.0); Immature Granulocyte Absolute 0.01 K/mm3 (0.00-0.031); Immature Granulocyte Percent A 0.2 % (0-0.5); Lymphocytes Absolute Auto 1.22 K/mm3 (0.9-3.2); Lymphocytes Percent Auto 27.6 % (18.3-44.2); Mean Corpuscular HGB Conc 33.1 g/dl (32-36); Mean Corpuscular Hemoglobin 30.4 pg (26-34); Mean Corpuscular Volume 91.7 fl (80-100); Mean Platelet Volume 10.7 fl (7.4-10.4); Monocytes Absolute Auto 0.4 K/mm3 (0.1-0.6); Neutrophils Absolute Auto 2.5 K/mm3 (1.3-6.7); Neutrophils Percent Auto 55.9 % (45.5-73.1); Platelet Count Result 178 k/mm3 (150-375); Red Blood Count 5.27 M/mm3 (4.6-6.20); Red Cell Distribution Width 11.9 % (11.5-14.5); White Blood Count 4.4 K/mm3 (4.5-10.0)
[2024-12-17 08:00] VITALS: PULSE 51
[2024-12-17 08:02] LABS: Alanine Aminotransferase 54 U/L (6-50); Albumin Level 3.8 g/dL (3.5-5.1); Alkaline Phosphatase 85 U/L (38-126); Anion Gap 6 mmol/L (4-12); Aspartate Amino Transferase 38 U/L (17-59); Bilirubin,Total 0.9 mg/dL (0.2-1.3); Blood Urea Nitrogen 13 mg/dL (9-20); Calcium 8.5 mg/dL (8.4-10.2); Carbon Dioxide 27 mmol/L (22-30); Chloride 102 mmol/L (98-107); Estimated CRCL calculation 114 ml/min; Estimated Glomerular Filt Rate > 60; Glucose 101 mg/dL (65-110); Potassium 4.3 mmol/L (3.4-5.0); Sodium 135 mmol/L (137-145)
[2024-12-17] MEDS: ATORVASTATIN 40 MG TABLET PO (08:35)
[2024-12-17] MEDS: ENOXAPARIN 40 MG/0.4 ML SYRINGE SUB-Q (08:35)
[2024-12-17] MEDS: CLOPIDOGREL BISULFATE 75 MG TABLET PO (08:35)
[2024-12-17] MEDS: ASPIRIN 81 MG ENTERIC TABLET PO (08:35)
[2024-12-17] MEDS: LIDOCAINE 5% PATCH 1 PATCH TRANSDERM (08:36)
[2024-12-17] MEDS: LORazepam INJ (*CRX) 2 MG/ML VIAL 1 MG IV PUSH (11:36)
--- NOTE | 2024-12-17 14:19 | P.DS_ITS ---
DS: Admitting Diagnosis Discharge Date 12/17/2024 Admitting Diagnosis Right arm numbness Right-sided chest pain Hyperlipidemia DS: Discharge Diagnosis Discharge Diagnosis (1) Right arm numbness: Code(s): R20.0 - Anesthesia of skin Status: Acute (2) Right-sided chest pain: Code(s): R07.9 - Chest pain, unspecified Status: Acute (3) Hyperlipidemia: Code(s): E78.5 - Hyperlipidemia, unspecified Status: Acute (4) Fatty liver: Code(s): K76.0 - Fatty (change of) liver, not elsewhere classified Status: Acute (5) Pulmonary nodule: Code(s): R91.1 - Solitary pulmonary nodule Status: Acute DS: Summary Hospital Course Reason for hospitalization: Chest Pain Hospital Course: 54-year-old presents the hospital with chest pain, shortness of breath and right arm numbness for about a week. History of COPD, asthma, and kidney cancer. States that the chest pain started out of nowhere, is on the right side of his chest, and worse with movement, palpation, and deep breaths. Also reported a decreased strength in his right arm. Denies any back pain, headaches, dizziness, fevers, abdominal pain, nausea/vomiting, or urinary/bowel changes. On initial eval in the emergency room he was noted to have decreased strength on the right, with normal vital signs, initial CT scan of the head was negative, CTA of the chest was negative for any acute process but multiple sub 6mm pulmonary nodules were documented. Brain MRI was obtained and was negative for any acute findings. Patient states that numbness and limited mobility of his right arm resolved. Chest pain is reproducible upon palpation. Neurology consulted. Given current neurological examination, negative cardiac workup and negative MRI, he is otherwise cleared from a neurology standpoint. Cervical MRI obtained to rule out the possibility of any space-occupying lesion in his cervical spine or significant arthritic spurs but the study did not suggest these results and neurology agreed there is no need for any surgical intervention in head or neck. In the AM of 12/17, patient denied any chest pain, n/v, abdominal pain, dizziness, headaches, or extremity pain/numbness. He states that since his admission his upper extremity numbness has been absent and this morning he has not had any chest pain. Blood work, including CMP, CBC, and troponin was negative. Triglycerides were elevated, patient has been started on Lipitor. EKG showed no significant findings. Patient otherwise stable with benign physical exam/neurological exam findings. Pt expressed interest in being discharged and patient is stable for discharge with close followup with his PCP. Status at Discharge Functional status at discharge: independent ambulation Overall status at discharge: patient is back to baseline Time Spent with Patient Time attestation: Total time spent providing and/or coordinating discharge services: 35 Exam Narrative: General: well appearing, appears stated age. HEENT: normocephalic, atraumatic. Mucous membranes moist. EOMI, PERRLA, bilateral sclera anicteric, no conjunctival injection. Neck supple without JVD, lymphadenopathy, or bruit. Respiratory: clear to ascultation bilaterally. No rales/rhonic/wheezes. Cardiovascular: Regular rate and rhythm, normal S1-S2 upon ascultation. No murmurs, rubs, or clicks. PMI is nondisplaced, capillary refill less than 3 second. Abdomen: Soft, round, no pulsatile masses, nondistended and nontender. No rebound, no guarding. No CVA tenderness, no hepatosplenomegaly. Bowel sounds present to all four quadrants. No high pitch or tinkling sounds, resonant to percussion. Extremities: No cyanosis, clubbing, or edema present. Pulses are palpable 2/2. Active ROM to all four extremities. Neuro: Alert and orientated x 4. PERRLA. Cranial nerves 2-12 intact without focal deficit. Skin: Warm, dry, and intact, without rash, erythema, or lesion. Psych: pleasant, cooperative, normal speech, normal affect, no hallucinations, no dysarthia DS: Data Data Completed and Pending Labs on day of discharge: Labs from last 24 hours 12/17/24 07:41 WBC 4.4 L RBC 5.27 Hgb 16.0 Hct 48.3 MCV 91.7 MCH 30.4 MCHC 33.1 RDW 11.9 Plt Count 178 MPV 10.7 H Immature Gran % (Auto) 0.2 Neut % (Auto) 55.9 Lymph % (Auto) 27.6 [place] % (Auto) 9.0 H Eos % (Auto) 5.9 H Baso % (Auto) 1.4 H Lymph # (Auto) 1.22 [place] # (Auto) 0.4 Eos # (Auto) 0.3 Baso # (Auto) 0.1 Abs Immat Gran (auto) 0.01 Absolute Neuts (auto) 2.5 Absolute Nucleated RBC 0.000 Nucleated RBC % 0.0 Sodium 135 L Potassium 4.3 Chloride 102 Carbon Dioxide 27 Anion Gap 6 BUN 13 Creatinine 0.88 Estim Creat Clear Calc 114 Estimated GFR > 60 Glucose 101 Calcium 8.5 Total Bilirubin 0.9 AST 38 ALT 54 H Alkaline Phosphatase 85 Total Protein 7.0 Albumin 3.8 Discharge Plan Discharge Attending physician on discharge: Mateus Pierce Consulting providers: Kavon Galaviz Discharging Clinician: Mateus Pierce Anticipated Discharge Date/Time: 12/17/24 14:14 Patient Disposition: Home Activity: as tolerated Diet: as tolerated Discharge Instructions: Discharge disposition: Stable Take medications as prescribed Monitor blood pressures Return to the emergency department if he developed sudden shortness of breath, chest pain, nausea, vomiting, upset stomach or intractable diarrhea Return to the emergency department if you develop fever greater than 101.5 Follow-up with the primary care physician within 1-2 weeks Thank you for [facility] for your healthcare needs Patient Instructions: Antibiotic Form Patient Language: [place] Stand Alone Forms: General Discharge Information Follow-up/Referrals: Martir,Rafaela Ferrara MD [Primary Care Provider] - Discharge Medications: New atorvastatin [Lipitor] 40 mg tablet 40 mg PO DAILY Qty: 30 0RF Date of admission: 12/15/24 20:19 Primary Care Provider: OsirisRafaela Admitting Provider: Mary Hawley Attending physician on admission: Mateus Pierce Condition: Stable Quality VTE Prophylaxis VTE prophylaxis: mechanical ordered and pharmacologic ordered
== END 2024-12-17 14:37 | disposition home or self-care (01) | DRG 203 ==
LOC: ANHED 19:31 → ANH2MED 21:17
PROVIDERS: Admitting Provider General Practice; Emergency Provider Student in an Organized Health Care Education/Training Program; PCP Internal Medicine Gastroenterology; Visit Provider Physician Assistant
DX: R07.9 Chest pain, unspecified (principal); R20.0 Anesthesia of skin; E78.5 Hyperlipidemia, unspecified; K76.0 Fatty (change of) liver, not elsewhere classified; R91.1 Solitary pulmonary nodule; J44.9 Chronic obstructive pulmonary disease, unspecified; R29.898 Other symptoms and signs involving the musculoskeletal system; F17.210 Nicotine dependence, cigarettes, uncomplicated; Z85.528 Personal history of other malignant neoplasm of kidney
CPT/HCPCS: 36415; 70450; 70551; 71046; 71275; 72156; 74174; 80053; 80061; 83036; 83690; 83880; 84484; 85025; 85380; 85610; 85730; 93005; 96374; 97161; 97165; 99285; A9270; A9579; J1171; J1650; J2060; Q9967